=== PATIENT | female | born 1975 | race Asian ===

== ENCOUNTER 2018-10-22 13:52 | Emergency (ER) | payer OTHER ==
[~2018-10-22] VITALS: Ht 152.4 cm; Wt 56.7 kg
[2018-10-22 13:59] VITALS: Ht 152.4 cm; Wt 56.7 kg
[2018-10-22 15:00] LABS: CALCIUM 8.3 mg/dL (8.5-10.1); CARBON DIOXIDE 22.2 mmol/L (21-32); CHLORIDE SERUM 106 mmol/L (98-107); CREATININE SERUM 0.6 mg/dL (0.6-1.0); GFR1 > 60 mL/min; GLUCOSE SERUM 83 mg/dL (74-106); POTASSIUM SERUM 3.1 mmol/L (3.5-5.1); SODIUM SERUM 137 mmol/L (136-145)
[2018-10-22 15:16] LABS: ALKALINE PHOSPHATASE 89 U/L (46-116); ALT/SGPT 17 U/L (14-59); AST/SGOT 13 U/L (15-37); BILIRUBIN TOTAL 0.2 mg/dL (0.20-1.00); TOTAL PROTEIN, SERUM 7.5 g/dL (6.4-8.2)
[2018-10-22 15:18] LABS: ALBUMIN 3.2 g/dL (3.4-5.0)
[2018-10-22 15:37] LABS: BASOPHIL % 0.1 % (0-2); PLATELET COUNT 293 x10^3mcL (130-400); RED CELL DISTRIBUTION WIDTH 20.5 % (11.5-14.5)
[2018-10-22 15:52] LABS: ovalocyte/elliptocyte 1+; rbc morphology (normal/abnorm) ABNORMAL (NORMAL); target cell (codocyte) 1+
[2018-10-22 18:23] VITALS: BP 120/90
== END 2018-10-22 18:55 | disposition home or self-care (01) ==
LOC: ED 13:52
PROVIDERS: Emergency Medicine
DX: R53.1 Weakness (principal); H83.03 Labyrinthitis, bilateral; R42 Dizziness and giddiness; E87.6 Hypokalemia; D64.9 Anemia, unspecified
CPT/HCPCS: J2405; J7030; J8597; Q0092